=== PATIENT | male | born 1985 | race Caucasian/White ===

== ENCOUNTER 2017-06-07 17:01 | Emergency (ER) | payer BC, MEDICAID ==
[2017-06-07 17:21] VITALS: RESP 20; O2SAT 95
--- NOTE | 2017-06-07 17:24 | EDPHY ---
H & P Time Seen by Provider: 06/07/17 17:09 HPI/ROS: 31-year-old male presents complaining of nail gun to his right pointer finger accidentally earlier this afternoon. He is able to move his finger. He states he has had a tetanus shot in the last 10 years. Review of systems-mild finger pain As per HPI General no fever no chills no weakness HEENT no eye pain no eye discharge. No eye redness, no sore throat Respiratory no cough, no shortness of breath Cardiac no chest pain, no peripheral edema GI no abdominal pain, no diarrhea, no constipation, no nausea, no vomiting no flank pain, no hematuria, no dysuria Musculoskeletal no myalgias, no joint pain Heme no easy bruising, no easy bleeding Endo no polyuria, no polydipsia Skin no rashes, no pruritus Neuro no syncope, no dizziness, no headaches Psych is no suicidal ideation, no homicidal ideation Past Medical/Surgical History: Noncontributory Social History: Alcohol socially, denies drug use Smoking Status: Never smoked Physical Exam: 31-year-old male Alert and oriented in no acute distress nontoxic appearance, afebrile Atraumatic normocephalic Neck no JVD Lungs clear to auscultation, no respiratory distress Heart regular rate and rhythm Extremities no cyanosis clubbing edema Except right pointer finger, good capillary refill, lateral aspect of right pointer finger at distal phalanx with 1 cm superficial appearing laceration Not gaping, no active bleeding, full range of motion at DIP, PIP and MCP Constitutional: Initial Vital Signs Temperature (C) 36.6 C 06/07/17 17:17 Heart Rate 67 06/07/17 17:17 Respiratory Rate 20 06/07/17 17:17 Blood Pressure 124/69 H 06/07/17 17:17 O2 Sat (%) 95 06/07/17 17:17 O2 Delivery Mode Room Air Allergies/Adverse Reactions: No Known Allergies Allergy (Verified 06/07/17 17:13) Home Medications: Medication Instructions Recorded Cephalexin 500 mg PO TID #21 capsule 06/07/17 Medical Decision Making - Diagnostics Imaging Results: Imaging Impressions Finger X-Ray 06/07/17 17:24 Impression: Negative. ED Course/Re-evaluation: Patient seen and evaluated for right pointer finger injury secondary to nail done high could not X-ray negative Wound cleansed Tetanus up-to-date Impression Right pointer finger puncture wound Plan Cephalexin 500 three times daily x7 days Return as needed for signs of infection or swelling Departure - Departure Disposition: Home, Routine, Self-Care Clinical Impression: Puncture wound of finger of right hand Condition: Good Instructions: Puncture Wound (ED) Referrals: NONE *PRIMARY CARE P,. [Primary Care Provider] - As per Instructions Prescriptions: Cephalexin 500 mg PO TID #21 capsule
[2017-06-07 18:16] VITALS: BP 126/68; PULSE 72; TEMP 98.1
== END 2017-06-07 18:16 | disposition home or self-care (01) ==
LOC: CED 17:01
DX: S61.230A Puncture wound without foreign body of right index finger without damage to nail, initial encounter (principal); W29.4XXA Contact with nail gun, initial encounter
CPT/HCPCS: 73140-PO